=== PATIENT | female | born 1970 | race Caucasian/White ===

== ENCOUNTER → 2019-09-07 | Outpatient (REF) | payer BC | LOC: M LAB REF 12:32 | PROVIDERS: ATTEND Family Medicine | DX: R79.89 Other specified abnormal findings of blood chemistry (principal) ==

== ENCOUNTER → 2019-09-15 | Outpatient (CLI) | payer BC ==
--- NOTE | 2019-09-15 12:55 | REPMRS ---
Patient History The patient states she had a clinical breast exam in August 2019.Patient is postmenopausal. No known family history of cancer. Digital Woman Screen Mammo: September 15, 2019 - Exam #: [id number] Bilateral CC and MLO view(s) were taken. Technologist: Melody Cabral, Technologist Prior study comparison: March 04, 2016, bilateral digital mammo screening bilat, performed at [facility]. May 27, 2013, bilateral digital mammo screening bilat, performed at [facility]. FINDINGS: There are scattered fibroglandular densities. There has been no change in the appearance of the mammogram from the prior studies. There is a mild amount of scattered fibroglandular density which is fairly symmetric. There is no interval development of dominant mass, architectural distortion, or grouped microcalcification suggestive of malignancy. 3-D tomosynthesis shows no additional findings. Assessment: BI-RADS/ACR category 1 mammogram. Negative Mammogram. Recommendation Routine screening mammogram of both breasts in 1 year (for women over age 40). This patient's Lifetime Breast Cancer Risk is estimated at 7.8 %. This mammogram was interpreted with the aid of an FDA-approved computer-aided dectection system. Electronically Signed By: Mauricio Rodríguez MD 09/15/19 2068
== END ==
LOC: M WHC 11:44
PROVIDERS: ATTEND Family Medicine
DX: Z12.31 Encounter for screening mammogram for malignant neoplasm of breast (principal)

== ENCOUNTER → 2020-10-19 | Outpatient (CLI) | payer BC ==
[~2020-10-19] MED LIST: BISO10TA14 PO; LOSA100T50 PO; MAG100TA PO; OMEG350C PO; SPIR-10 PO
--- NOTE | 2020-10-19 10:43 | REP ---
INDICATION: INCREASING WBC. COMPARISON: None. TECHNIQUE: Complete abdominal sonography. FINDINGS: Scanning through the right upper quadrant of the abdomen demonstrates a normal sized and walled gallbladder without evidence of stone or polyp. Common bile duct is normal measuring 0.4 cm in greatest diameter. There is increased echogenicity in the liver consistent with fatty infiltration. The liver is felt to be mildly enlarged with a vertical midclavicular span of 18.6 cm. No focal liver lesion is seen. Limited views of the pancreas show no abnormality. Left upper quadrant scanning demonstrates borderline spleen measuring 12.4 x 10.1 x 5.0 cm. No focal splenic lesion is seen. There is no evidence of ascites. Normal caliber aorta is seen, 2.4 cm in greatest anteroposterior dimension. Renal cortical echogenicity pattern is normal. Renal pyramids are echogenic bilaterally question medullary sponge kidney. No hydronephrosis seen on either side. There is a is a 1 cm cyst in the right kidney and 2 cysts in the left kidney are seen measuring 1.7 and 1.5 cm in greatest diameter respectively. No renal mass lesion is observed. Right renal dimensions are 11.6 x 5.2 x 5.1 cm. The left kidney measures 12.6 x 4.8 x 5.4 cm. IMPRESSION: Evidence of fatty infiltration of the liver. Possible medullary sponge kidney, echogenic renal pyramids bilaterally. Small bilateral renal cysts. Otherwise negative. <Electronically signed by Mauricio Rodríguez > 10/19/20 [id number]
== END ==
LOC: M RAD 07:56
PROVIDERS: ATTEND Internal Medicine Hematology & Oncology
DX: D72.829 Elevated white blood cell count, unspecified (principal); N28.1 Cyst of kidney, acquired

== ENCOUNTER → 2023-12-31 | Outpatient (CLI) | payer OTHER ==
[~2023-12-31] MED LIST changes: +LOSA100T46 PO; -LOSA100T50 PO
== END ==
LOC: M WHC 07:25
PROVIDERS: ATTEND Family Medicine
DX: Z12.31 Encounter for screening mammogram for malignant neoplasm of breast (principal)

== ENCOUNTER 2024-05-12 07:30 | Day surgery (SDC) | payer OTHER ==
[~2024-05-12] VITALS: Ht 160 cm; Wt 94.6 kg
[~2024-05-12 07:30] MED LIST changes: +MAGN200T PO; +NS 250 ML IV ONE; +[UNRECOGNIZED DRUG - OTHER] PO
[2024-05-12] MEDS ORDERED: LIDOCAINE 2% 100MG/5ML SDV (FOR ANES.) As Ordered ONE (07:31)
[2024-05-12] MEDS ORDERED: propofoL 200 MG/20 ML VIAL As Ordered ONE (07:31)
[2024-05-12 09:31] VITALS: TEMP 97.5
[2024-05-12 09:50] VITALS: BP 162/60; O2SAT 97
== END 2024-05-12 09:57 | disposition home or self-care (01) ==
LOC: M OPP 07:30
PROVIDERS: ATTEND Surgery
DX: Z12.11 Encounter for screening for malignant neoplasm of colon (principal); Z12.12 Encounter for screening for malignant neoplasm of rectum; K63.5 Polyp of colon; K57.30 Diverticulosis of large intestine without perforation or abscess without bleeding; K64.2 Third degree hemorrhoids; I10 Essential (primary) hypertension; F17.210 Nicotine dependence, cigarettes, uncomplicated; Z79.899 Other long term (current) drug therapy